=== PATIENT | male | born 1995 | race Caucasian/White ===

== ENCOUNTER 2018-03-19 10:59 | Emergency (ER) | payer OTHER ==
[~2018-03-19] VITALS: Ht 170.2 cm; Wt 61.2 kg
[2018-03-19 11:13] VITALS: BP 136/96; Ht 170.2 cm; Wt 61.2 kg
== END 2018-03-19 12:52 | disposition home or self-care (01) ==
LOC: ED 10:59
DX: S93.401A Sprain of unspecified ligament of right ankle, initial encounter (principal); W51.XXXA Accidental striking against or bumped into by another person, initial encounter; Y93.89 Activity, other specified; Y92.89 Other specified places as the place of occurrence of the external cause; Y99.8 Other external cause status